=== PATIENT | female | born 1970 | race Caucasian/White ===

== ENCOUNTER → 2020-04-04 | Outpatient (CLI) | payer BC ==
--- NOTE | 2020-04-04 14:04 | Diagnostic Imaging Report ---
EXAM: Renal Ultrasound INDICATION: Microscopic hematuria ^[id number] ^[id number] ^MICROSCOPIC HEMATURIA / UTI COMPARISON: None TECHNIQUE: Transverse and longitudinal images of the kidneys and bladder were obtained. FINDINGS: Right Kidney: Length: 11.6 x 5.2 x 4.7 cm Appearance: Normal echogenicity. Collecting system: No hydronephrosis Stones: None Cyst/Mass: None Left Kidney: Not seen Bladder: Normal IMPRESSION: Left kidney not seen. Otherwise, unremarkable renal ultrasound. Signed by: Dr. Barry García M.D. on 04/04/2020 2:00 PM
== END ==
LOC: US 12:22
PROVIDERS: ATTEND Urology
DX: R31.29 Other microscopic hematuria (principal); N39.0 Urinary tract infection, site not specified
CPT/HCPCS: 76770